=== PATIENT | female | born 1970 | race Caucasian/White ===

== ENCOUNTER 2018-08-02 13:20 | Emergency (ER) | payer SELFPAY ==
[2018-08-02] MEDS ORDERED: DUONEB 0.5-3 MG/3 ml Neb IH ONE ×2 (13:43→14:04)
--- NOTE | 2018-08-02 13:50 | ERPHSYRPT ---
- History of Present Illness Time Seen by Provider: 08/02/18 13:45 Source: patient Exam Limitations: no limitations Physician History: 48-year-old white female arrives with complaint of cough shortness of breath for a week states she's been out of her inhaler. States she's been coughing yellow sputum she states she has pain in her chest with coughing and deep breathing. No fevers no nausea no vomiting. Past medical history includes CVA, patient states she has a hole in her heart. Past surgical history includes hysterectomy. Social history positive for tobacco use positive for occasional alcohol use patient denies illicit drug use. Timing/Duration: week(s) (1 week) Activities at Onset: none Severity of Dyspnea-Max: moderate Severity of Dyspnea-Current: moderate Possible Cause: occasional episodes Associated Symptoms: constant, cough, chest pain/discomfort (pain in chest with cough and deep breathing), wheezing, painful breathing, productive cough, No intermittent, No anxiety, No edema, No fever, No insomnia, No loss of appetite, No lightheadedness, No weakness, No ankle swelling, No chills, No hemoptysis, No calf pain, No dizziness, No heaviness, No heart racing, No lightheadedness, No leg swelling, No muscle spasms feet, No muscle spasms hands, No sweating, No tightness, No tingling face, No tingling hands International travel in last 2 weeks: No Allergies/Adverse Reactions: No Known Drug Allergies Allergy (Unverified 08/02/18 13:48) - Review of Systems Constitutional: No Fever, No Chills Eyes: No Symptoms Ears, Nose, & Throat: No Symptoms Respiratory: Cough, Dyspnea, Wheezing Cardiac: Chest Pain (Pain in chest with couging and deep breathing) Abdominal/Gastrointestinal: No Abdominal Pain, No Nausea, No Vomiting, No Diarrhea Genitourinary Symptoms: No Dysuria Musculoskeletal: No Back Pain, No Neck Pain Skin: No Rash Neurological: No Dizziness, No Focal Weakness, No Sensory Changes Psychological: No Symptoms Endocrine: No Symptoms All Other Systems: Reviewed and Negative - Past Medical History Neurological History: Other (patient states told she had had cva in past) Cardiac History: Other (patient states she was told she had hole in her heart) Respiratory History: Other (uses inhaler but out) - Past Surgical History Past Surgical History: Yes Female Surgical History: Hysterectomy - Social History Smoking Status: Current every day smoker Alcohol Use: Socially Drug Use: none - Nursing Vital Signs Nursing Vital Signs: Initial Vital Signs Temperature 98.1 F 08/02/18 13:31 Pulse Rate 100 H 08/02/18 13:31 Respiratory Rate 18 08/02/18 13:31 Blood Pressure 149/86 08/02/18 13:31 O2 Sat by Pulse Oximetry 96 08/02/18 13:31 Pain Scale Pain Intensity 3 - Physical Exam General Appearance: mild distress, alert Eye Exam: PERRL/EOMI Ears, Nose, Throat Exam: hearing grossly normal, normal ENT inspection, normal pharynx, No abnormal TM (R), No abnormal TM (L), No sinus pain/drainage, No hearing decreased, No nasal congestion, No pharyngeal erythema, No tonsillar exudate, No tonsillar swelling Neck Exam: normal inspection, supple, full range of motion Respiratory Exam: airway intact, diminished breath sounds, No chest tenderness, No lungs clear, No respiratory distress, No prolonged expirations, No crackles/ rales, No rhonchi, No wheezing, No stridor, No pleural rub Cardiovascular/Chest Exam: normal heart sounds, regular rate/rhythm Abdominal/Gastrointestinal Exam: soft, No tenderness, No distention, No mass Extremity Exam: non-tender, normal range of motion, normal inspection, no calf tenderness, no pedal edema Peripheral Pulses Exam: dorsalis-pedis (R): 2+, dorsalis-pedis (L): 2+ Neurologic Exam: alert, oriented x 3, cooperative, health and safety representative II-XII nml as tested, sensation nml, No motor deficits Skin Exam: normal color, warm, No dry SpO2 Interpretation: normal (95%) - Course Nursing assessment & vital signs reviewed: Yes EKG Interpreted by Me: RATE (80 bpm), Sinus Rhythm, NORMAL AXIS, Other (EKG: sinus rhythm, 80 bpm, normal axis, no acute ST or T wave changes, normal EKG) - Radiology Exams Chest X-ray Interpretation: Discussed w/ radiologist (chest x-ray: Normal heart and lungs. Bony thorax intact with mild degenerative changes and mild dextroscoliosis.) Ordered Tests: Active Orders 24 hr Category Date Time Status EKG-ER Only STAT Care 08/02/18 13:43 Active IV Insertion STAT Care 08/02/18 13:43 Active Pulse Oximetry (ED) STAT Care 08/02/18 13:43 Active CHEST 1 VIEW (PORTABLE) Stat Exams 08/02/18 13:44 Completed CBC W DIFF Stat Lab 08/02/18 14:45 Completed CMP Stat Lab 08/02/18 14:45 Completed CULTURE,SPUTUM Stat Lab 08/02/18 13:43 Uncollected D-DIMER QUANTITATION Stat Lab 08/02/18 14:45 Completed NT PRO BNP Stat Lab 08/02/18 14:45 Completed TROPONIN Q3H Lab 08/02/18 14:45 Completed TROPONIN Q3H Lab 08/02/18 16:45 Ordered TROPONIN Q3H Lab 08/02/18 19:45 Ordered TROPONIN Q3H Lab 08/02/18 22:45 Ordered TROPONIN Q3H Lab 08/03/18 01:45 Ordered Peak Expiratory Flow Rate ONCE RT 08/02/18 14:11 Completed Respiratory Nebulizer STAT RT 08/02/18 13:44 Completed Respiratory Nebulizer STAT RT 08/02/18 15:34 Active Respiratory Therapy Assessment DAILY RT 08/02/18 14:12 Completed Medication Summary Discontinued Medications Generic Name Dose Route Start Last Admin Trade Name Freq PRN Reason Stop Dose Admin Albuterol/Ipratropium 3 ml 08/02/18 13:43 08/02/18 14:04 Duoneb 0.5-3 Mg/3 Ml Neb IH 08/02/18 13:44 3 ml STAT ONE Administration Albuterol/Ipratropium Confirm 08/02/18 14:04 Duoneb 0.5-3 Mg/3 Ml Neb Administered 08/02/18 14:05 Dose 3 ml IH .STK-MED ONE Methylprednisolone Sodium Succinate 125 mg 08/02/18 14:58 08/02/18 15:03 Solu-Medrol 125 Mg IV 08/02/18 14:59 125 mg STAT ONE Administration Methylprednisolone Sodium Succinate Confirm 08/02/18 15:01 Solu-Medrol 125 Mg Administered 08/02/18 15:02 Dose 125 mg .ROUTE .STK-MED ONE Lab/Rad Data: Laboratory Result Diagrams 08/02/18 14:45 08/02/18 14:45 Laboratory Results 08/02/18 08/02/18 08/02/18 Range/Units 14:45 14:45 14:45 WBC (4.0-10.5) K/mm3 RBC (4.1-5.4) M/mm3 Hgb (12.0-16.0) gm/dl Hct (35-47) % MCV (78-100) fl MCH (26-32) pg MCHC (32-36) g/dl RDW (11.5-14.0) % Plt Count (150-450) K/mm3 MPV (6-9.5) fl Gran % (36.0-66.0) % Eos # (Auto) (0-0.5) Absolute Lymphs (auto) (1.0-4.6) Absolute Monos (auto) (0.0-1.3) Lymphocytes % (24.0-44.0) % Monocytes % (0.0-12.0) % Eosinophils % (0.00-5.0) % Basophils % (0.0-0.4) % Absolute Granulocytes (1.4-6.9) Basophils # (0-0.4) D-Dimer < 215 L (215-500) ng/mL Sodium 141 (137-145) mmol/L Potassium 3.8 (3.5-5.1) mmol/L Chloride 102 (98-107) mmol/L Carbon Dioxide 29 (22-30) mmol/L Anion Gap 13.4 (5-15) MEQ/L BUN 6 L (7-17) mg/dL Creatinine 0.67 (0.52-1.04) mg/dL Estimated GFR > 60.0 ML/MIN Glucose 87 (74-106) mg/dL Calcium 9.8 (8.4-10.2) mg/dL Total Bilirubin 0.40 (0.2-1.3) mg/dL AST 23 (14-36) U/L ALT 13 (0-35) U/L Alkaline Phosphatase 95 (38-126) U/L Troponin I < 0.012 (0.000-0.034) ng/mL NT-Pro-B Natriuret Pep 91.3 (0-900) pg/mL Serum Total Protein 7.6 (6.3-8.2) g/dL Albumin 4.6 (3.5-5.0) g/dL 08/02/18 Range/Units 14:45 WBC 10.6 H (4.0-10.5) K/mm3 RBC 4.76 (4.1-5.4) M/mm3 Hgb 15.0 (12.0-16.0) gm/dl Hct 45.4 (35-47) % MCV 95.4 (78-100) fl MCH 31.5 (26-32) pg MCHC 33.0 (32-36) g/dl RDW 12.1 (11.5-14.0) % Plt Count 271 (150-450) K/mm3 MPV 11.0 H (6-9.5) fl Gran % 75.2 H (36.0-66.0) % Eos # (Auto) 0.02 (0-0.5) Absolute Lymphs (auto) 1.89 (1.0-4.6) Absolute Monos (auto) 0.70 (0.0-1.3) Lymphocytes % 17.8 L (24.0-44.0) % Monocytes % 6.6 (0.0-12.0) % Eosinophils % 0.2 (0.00-5.0) % Basophils % 0.2 (0.0-0.4) % Absolute Granulocytes 7.97 H (1.4-6.9) Basophils # 0.02 (0-0.4) D-Dimer (215-500) ng/mL Sodium (137-145) mmol/L Potassium (3.5-5.1) mmol/L Chloride (98-107) mmol/L Carbon Dioxide (22-30) mmol/L Anion Gap (5-15) MEQ/L BUN (7-17) mg/dL Creatinine (0.52-1.04) mg/dL Estimated GFR ML/MIN Glucose (74-106) mg/dL Calcium (8.4-10.2) mg/dL Total Bilirubin (0.2-1.3) mg/dL AST (14-36) U/L ALT (0-35) U/L Alkaline Phosphatase (38-126) U/L Troponin I (0.000-0.034) ng/mL NT-Pro-B Natriuret Pep (0-900) pg/mL Serum Total Protein (6.3-8.2) g/dL Albumin (3.5-5.0) g/dL - Progress Progress: improved, re-examined Air Movement: fair Progress Note: 08/02/18 15:34 Patient feeling better after Solu-Medrol, duo neb treatment. Still has a few wheezes. Will give patient an albuterol treatment. Plan. Home with albuterol nebulizer, tapering dose prednisone, Zithromax Z-Connor. Patient advised to quit smoking. - Departure Time of Disposition: 15:35 Departure Disposition: Home Clinical Impression: COPD with exacerbation, Shortness of breath Condition: Fair Critical Care Time: No Referrals: DOCTOR,NO FAMILY [Primary Care Provider] - Instructions: Chronic Obstructive Pulmonary Disease Additional Instructions: Return home. Plenty of fluids. Albuterol hand-held nebulizer 2 puffs every 4-6 hours as needed. Prednisone taper as directed. Zithromax Z-CONNOR as directed. Follow-up with your family doctor. Quit smoking. Return for acute distress or for severe symptoms. Prescriptions: Albuterol Common Canister [Proventil Common Canister] 2 puff IH Q4-6HPRN PRN #1 canister PRN Reason: sob, wheezing Azithromycin 250 mg [Zithromax 250 MG TABLET] 0 mg PO ZPACK #6 tablet
--- NOTE | 2018-08-02 14:07 | XRAY ---
Indication: Cough and short of breath. Comparison: None Portable chest demonstrates normal heart and lungs. Bony thorax intact with mild degenerative changes and mild dextroscoliosis.
[2018-08-02] MEDS ORDERED: solu-MEDROL 125 MG IV ONE (14:58)
[2018-08-02] MEDS ORDERED: solu-MEDROL 125 MG ONE (15:01)
[2018-08-02 15:08] LABS: BASOPHIL % 0.2 % (0.0-0.4); Basophil (Absolute #) 0.02 (0-0.4); Eosinophil % 0.2 % (0.00-5.0); Eosinophil (Absolute #) 0.02 (0-0.5); Granulocyte Absolute (ANC) 7.97 (1.4-6.9); Granulocytes % 75.2 % (36.0-66.0); Hematocrit 45.4 % (35-47); Lymphocyte (Absolute #) 1.89 (1.0-4.6); Lymphocytes % 17.8 % (24.0-44.0); Mean Cell Volume 95.4 fl (78-100); Mean Corpuscular Hemoglobin 31.5 pg (26-32); Monocytes % 6.6 % (0.0-12.0); Platelet Count 271 K/mm3 (150-450); Red Blood Count 4.76 M/mm3 (4.1-5.4); Red Cell Distribution Width 12.1 % (11.5-14.0); White Blood Count 10.6 K/mm3 (4.0-10.5)
[2018-08-02 15:21] LABS: ALBUMIN 4.6 g/dL (3.5-5.0); ALKALINE PHOSPHATASE 95 U/L (38-126); ANION GAP 13.4 MEQ/L (5-15); BLOOD UREA NITROGEN 6 mg/dL (7-17); CHLORIDE 102 mmol/L (98-107); Calcium 9.8 mg/dL (8.4-10.2); Carbon Dioxide 29 mmol/L (22-30); Creatinine 1 0.67 mg/dL (0.52-1.04); Glucose 87 mg/dL (74-106); NT PRO BNP 91.3 pg/mL (0-900); Potassium 3.8 mmol/L (3.5-5.1); SGOT/AST 23 U/L (14-36); SGPT/ALT 13 U/L (0-35); SODIUM 141 mmol/L (137-145); Total Protein 7.6 g/dL (6.3-8.2)
[2018-08-02] MEDS ORDERED: PROVENTIL 2.5 MG/3 ML NEB IH ONE ×2 (15:33→15:42)
[2018-08-02 15:47] VITALS: O2SAT 92
[2018-08-02 16:17] VITALS: BP 109/73; PULSE 90
== END 2018-08-02 16:20 | disposition home or self-care (01) ==
LOC: ED 13:20
DX: J44.1 Chronic obstructive pulmonary disease with (acute) exacerbation (principal); F17.200 Nicotine dependence, unspecified, uncomplicated
CPT/HCPCS: 36000; 36415; 71045; 80053; 83880; 84484; 85025; 85379; 93005; 94150; 94640; 96374; 99284; J2930; J7609; A9270-GY

== ENCOUNTER 2019-08-21 11:43 | Emergency (ER) | payer MEDICAID ==
[2019-08-21] MEDS ORDERED: Robitussin AC Syrup Unit Dose Cup PO STA (12:33)
--- NOTE | 2019-08-21 12:48 | ERPHSYRPT ---
- History of Present Illness Time Seen by Provider: 08/21/19 12:46 Source: patient Exam Limitations: no limitations Patient Subjective Stated Complaint: Pt c/o of coughing since and her throat feels irritated and like it is closing off, vomiting, diarrhea Triage Nursing Assessment: Pt walked into the ER, vitals wnl, denies pain, lungs clear, throat swollen, last diarrhea and vomiting was last night after she ate, ate this morning but was able to hold it down Physician History: Pt c/o of coughing since and her throat feels irritated and like it is closing off, vomiting, diarrhea Timing/Duration: day(s) (2-3 days) Cough Quality/Degree: dry cough Associated Symptoms: cough, sore throat International travel in last 2 weeks: No Allergies/Adverse Reactions: No Known Drug Allergies Allergy (Verified 08/21/19 12:12) Hx Tetanus, Diphtheria Vaccination/Date Given: Yes Hx Influenza Vaccination/Date Given: Yes Hx Pneumococcal Vaccination/Date Given: Yes - Review of Systems Constitutional: No Fever, No Chills Eyes: No Symptoms Ears, Nose, & Throat: No Symptoms, Throat Pain, Throat Swelling, Hoarse Respiratory: No Cough, No Dyspnea Cardiac: No Chest Pain, No Edema, No Syncope Abdominal/Gastrointestinal: Vomiting, Diarrhea, No Abdominal Pain, No Nausea Genitourinary Symptoms: No Dysuria Musculoskeletal: No Back Pain, No Neck Pain Skin: No Rash Neurological: No Dizziness, No Focal Weakness, No Sensory Changes Psychological: No Symptoms Endocrine: No Symptoms All Other Systems: Reviewed and Negative - Past Medical History Pertinent Past Medical History: Yes Neurological History: Other Cardiac History: Other Respiratory History: Other - Past Surgical History Past Surgical History: Yes Female Surgical History: Hysterectomy - Social History Smoking Status: Current every day smoker How long have you smoked: 32 Exposure to second hand smoke: Yes Alcohol Use: Socially Drug Use: none Patient Lives Alone: No - Female History Hx Now: No (hysterectomy) - Nursing Vital Signs Nursing Vital Signs: Initial Vital Signs Temperature 98.2 F 08/21/19 12:00 Pulse Rate 86 08/21/19 12:00 Blood Pressure 130/81 08/21/19 12:00 O2 Sat by Pulse Oximetry 97 08/21/19 12:00 Pain Scale Pain Intensity 0 - Physical Exam General Appearance: no apparent distress, alert Eye Exam: PERRL/EOMI, eyes nml inspection Ears, Nose, Throat Exam: normal ENT inspection, TMs normal, moist mucous membranes, pharyngeal erythema Neck Exam: normal inspection, non-tender, supple, full range of motion Respiratory Exam: diminished breath sounds, wheezing, No respiratory distress Cardiovascular Exam: regular rate/rhythm, normal heart sounds Gastrointestinal/Abdomen Exam: soft, No tenderness Back Exam: normal inspection, No CVA tenderness, No vertebral tenderness Extremity Exam: normal inspection, normal range of motion Neurologic Exam: alert, oriented x 3, cooperative, normal mood/affect, sensation nml, No motor deficits Skin Exam: normal color, warm, dry, No rash Lymphatic Exam: No adenopathy SpO2: 98 - Course Nursing assessment & vital signs reviewed: Yes Ordered Tests: Active Orders 24 hr Category Date Time Status CHEST 2 VIEWS (PA AND LAT) Stat Exams 08/21/19 12:34 Taken Medication Summary Discontinued Medications Generic Name Dose Route Start Last Admin Trade Name Freq PRN Reason Stop Dose Admin Guaifenesin/Codeine Phosphate 10 ml 08/21/19 12:33 08/21/19 12:53 Robitussin Ac Syrup Unit Dose Cup PO 08/21/19 12:34 10 ml QIDP STA Administration Guaifenesin/Codeine Phosphate Confirm 08/21/19 12:51 Robitussin Ac Syrup Unit Dose Cup Administered 08/21/19 12:52 Dose 10 ml .ROUTE .STK-MED ONE Lab/Rad Data: Laboratory Results 08/21/19 Range/Units 12:45 Influenza Type A Ag NEGATIVE (NEGATIVE) Influenza Type B Ag NEGATIVE (NEGATIVE) RSV (PCR) NEGATIVE (Negative) Group A Strep Antibody NEGATIVE (NEGATIVE) - Progress Progress: improved Counseled pt/family regarding: lab results, diagnosis, need for follow-up, rad results - Departure Departure Disposition: Home Clinical Impression: Pharyngitis Qualifiers: Pharyngitis/tonsillitis etiology: other specified organisms Qualified Code(s): J02.8 - Acute pharyngitis due to other specified organisms Condition: Stable Critical Care Time: No Referrals: BEAN OWUSU MD [ACTIVE STAFF] - Instructions: Cough, Adult (DC) Prescriptions: Benzonatate [Tessalon Perle] 100 mg PO QID #30 capsule Azithromycin [Zithromax] 250 mg PO UD 5 Days #6 tablet
[2019-08-21] MEDS ORDERED: Robitussin AC Syrup Unit Dose Cup ONE (12:51)
[2019-08-21 13:28] LABS: Group A Strep NEGATIVE (NEGATIVE); INFLUENZA A NEGATIVE (NEGATIVE); INFLUENZA B NEGATIVE (NEGATIVE); RESPIRATORY SYNCTIAL VIRUS NEGATIVE (Negative)
[2019-08-21 13:35] VITALS: O2SAT 98
[2019-08-21 13:42] VITALS: BP 120/74; PULSE 76
--- NOTE | 2019-08-21 20:28 | XRAY ---
Indication: Cough, vomiting, diarrhea, and sore throat. Comparison: August 02, 2018. PA/lateral chest hyperinflated and clear. Heart and mediastinal structures within normal limits. Bony thorax intact again with mild scoliosis. Impression: Nonacute hyperinflated chest.
== END 2019-08-21 13:43 | disposition home or self-care (01) ==
LOC: ED 11:43
DX: J02.8 Acute pharyngitis due to other specified organisms (principal)
CPT/HCPCS: 71046; 87631; 87651; 99284; A9270-GY